=== PATIENT | female | born 1980 | race Caucasian/White ===

== ENCOUNTER 2018-08-01 13:15 | Inpatient (IN) | payer OTHER ==
[2018-08-01 15:07] VITALS: BMI 25.0
[2018-08-01 16:36] LABS: BASO % 0.5 % (0-2.0); EOS % 0.5 % (0-4.5); HEMATOCRIT 37.2 % (32.4-45.2); HEMOGLOBIN 12.9 GM/dL (10.7-15.3); LYMPH % 15.7 % (8-40); MCH 32.1 pg (25.7-33.7); MCHC 34.8 g/dl (32.0-36.0); MEAN CELL VOLUME 92.2 fl (80-96); MEAN PLT VOLUME 8.7 fl (7.5-11.1); MONO % 5.5 % (3.8-10.2); NEUT % 77.8 % (42.8-82.8); PLATELET COUNT 227 K/MM3 (134-434); RBC 4.03 M/mm3 (3.60-5.2); RDW 12.9 % (11.6-15.6); WHITE BLOOD COUNT 8.6 K/mm3 (4.0-10.0)
[2018-08-01 16:50] LABS: INR 0.87 (0.83-1.09); PROTHROMBIN TIME (PATIENT) 10.3 SEC (9.7-13.0)
[2018-08-01 16:53] LABS: ACTIVATED PTT 25.3 SECONDS (25.2-36.5)
[2018-08-01 16:57] LABS: ANION GAP 11 MMOL/L (8-16); BLOOD UREA NITROGEN 10 mg/dL (7-18); CALCIUM 7.8 mg/dL (8.5-10.1); CHLORIDE 105 mmol/L (98-107); CO2 20 mmol/L (21-32); CREATININE 0.6 mg/dL (0.55-1.3); GLUCOSE,RANDOM 68 mg/dL (74-106); POTASSIUM 3.9 mmol/L (3.5-5.1); SODIUM 137 mmol/L (136-145)
[2018-08-01] MEDS ORDERED: NALOXONE HCL 0.4 MG/ML VIAL IVPUSH PRN (17:58)
--- NOTE | 2018-08-01 18:10 | HP ---
Past Medical History - Primary Care Physician PCP:: Douglas Cooney - Admission Chief Complaint: 37yo P2 with at EGA 37w 6d admitted in spontaneous labor. 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 RUBBER: No: Alzheimer's, CVA, Dementia, Migraine, Multiple Sclerosis, Peripheral Neuropathy, Parkinson's, Seizure, Syncope, TIA, Vertigo, Other Cardiovascular: No: AFIB, Aneurysm, Aortic Insufficiency, Aortic Stenosis, CAD, CHF, Deep Vein Thrombosis, HTN, Hyperlipdemia, NV, Mitral Insufficiency, Mitral Stenosis, Murmur, Pulmonary Hypertension, Other Pulmonary: No: Asthma, Bronchitis, Cancer, COPD, O2 Dependent, Pneumonia, Previously Intubated, Pulmonary Embolus, Pulmonary Fibrosis, Sleep Apnea, Other Gastrointestinal: No: Ascites, Cancer, Constipation, Crohn's Disease, Diverticulitis, Diverticulosis, Esophageal Varices, Gastritis, GERD, GI Bleed, Hemorrhoids, Hiatal Hernia, Inflamatory Bowel Disease, Irritable Bowel Disease, Pancreatitis, Peptic Ulcer Disease, Ulcerative Colitis, Other Hepatobiliary: No: Cirrhosis, Cholelithiasis, Cholecystitis, Choledocholithiasis , Hepatitis A, Hepatitis B, Hepatitis C, Other Renal/: No: Renal Failure, Renal Inusuff, BPH, Cancer, Hematuria, Hemodialysis , Neurogenic Bladder, Renal Calculi, UTI, Other Reproductive: No: Ectopic , Endometriosis, Fibroids, PID, Polycystic Ovary Syndrome, Postmenopausal, Other ...: 5 ...Para: 2 ( x 2) ...Term: 1 ...: 1 ...Spon : 2 ...Induced : 0 ...Multiple Gestation: 0 ...LMP: 11/08/17 ... Weeks Gestation by Dates: 37.6 ...EDC by Dates: 08/15/18 ...EDC by Sono: 08/16/18 Heme/Onc: No: Anemia, B12 Deficiency, Bleeding Disorder, Cancer, Current Chemotherapy, Current Radiation Therapy, Hemochromatosis, Hypercoaguable State, Myeloproliferative Synd, Sickle Cell Disease, Sickle Cell Trait, Thrombocytopenia, Other Infectious Disease: No: AIDS, C-Diff, Herpes Zoster, HIV, MRSA, STD's, Tuberculosis, VREF, Other Psych: No: Addictions, Anxiety, Bipolar, Depression, Panic, Psychosis, Schizophrenia, Other Musculoskeletal: No: Bursitis, Chronic low back pain, Hemiparesis, Hemiplegia, Osteoarthritis, Paraplegia, Other Rheumatology: No: Fibromyalgia, Gout, Lupus, Rheumatoid Arthritis, Sarcoidosis, Vasculitis, Other ENT: No: Allergic Rhinitis, Sinusitis, Other Endocrine: No: Boom's Disease, [place]'s Disease, Diabetes Insipidus, Diabetes Mellitus, Hyperparathyroidism, Hyperthyroidism, Hypothyroidism, Osteopenia, SIADH, Other Dermatology: No: Basal Cell, Cellulitis, Eczema, Melanoma, Psoriasis, Squamous Cell, Other - Past Surgical History Past Surgical History: Yes: Appendectomy Hx Myomectomy: No Hx Transabdominal Cerclage: No - Smoking History Smoking history: Never smoked Have you smoked in the past 12 months: No - Alcohol/Substance Use Hx Alcohol Use: No History of Substance Use: reports: None - Social History Usual Living Arrangement: Yes: With Spouse, With Child ADL: Independent 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 History of Recent Travel: No Home Medications - Allergies Allergies/Adverse Reactions: Allergies Allergy/AdvReac Type Severity Reaction Status Date / Time No Known Allergies Allergy Verified 08/01/18 15:10 - Home Medications Home Medications: Ambulatory Orders Vitamins (Sjr) - 1 tab PO BID 12/22/14 Family Disease History - Family Disease History Other Family History: Aunt had DVT and PE at age 40 Review of Systems - Review of Systems Constitutional: reports: Other (Labor, ctx) Eyes: reports: No Symptoms HENT: reports: No Symptoms Neck: reports: No Symptoms Cardiovascular: reports: No Symptoms Respiratory: reports: No Symptoms Gastrointestinal: reports: No Symptoms Genitourinary: reports: No Symptoms Breasts: reports: No Symptoms Reported Musculoskeletal: reports: No Symptoms Integumentary: reports: No Symptoms Neurological: reports: No Symptoms Endocrine: reports: No Symptoms Hematology/Lymphatic: reports: No Symptoms Psychiatric: reports: No Symptoms Pain Intensity: 4 Physical Exam - Maternity Vital Signs: Vital Signs Temperature 98.6 F 08/01/18 13:15 Pulse Rate 58 L 08/01/18 17:00 Respiratory Rate 20 08/01/18 17:00 Blood Pressure 141/70 08/01/18 17:00 O2 Sat by Pulse Oximetry (%) Constitutional: Yes: Well Nourished, No Distress, Calm Eyes: Yes: WNL, Conjunctiva Clear HENT: Yes: WNL, Atraumatic, Normocephalic Neck: Yes: WNL, Supple, Trachea Midline Cardiovascular: Yes: WNL, Regular Rate and Rhythm Lungs: Clear to auscultation, Normal air movement Breast(s): Yes: WNL - Abdominal Exam/OB Fundal Height: 38 Number of Fetuses: Single Presentation: Vertex Contractions: Yes Regularity: Regular Intensity: Mild/Mod Monitor Mode: External Heart Rate (range): 135 Category: I Accelerations: Non-Uniform Decelerations: None - Vaginal Exam/OB Vaginal Bleediing: No Speculum Exam: No Dilatation (cm): 4 Effacement (%): 70 Amniotic Membrane Status: Ruptured (AROM) Amniotic Fluid: Yes: Clear Presentation: Vertex/Position Station: -3 - Physical Exam Musculoskeletal: Yes: WNL Extremities: Yes: WNL Edema: No Integumentary: Yes: WNL Deep Tendon Reflex Grade: Normal +2 ...Motor Strength: WNL Psychiatric: Yes: WNL, Alert, Oriented - Labs Lab Results: CBC, BMP 08/01/18 15:40 08/01/18 15:40 Hemorrhage Risk Assessment - Risk Factors Medium Risk Factors: Yes: None High Risk Factors: Yes: None Risk Score: 1 Risk Level: Medium Risk Imaging - Results Ultrasound: Report Reviewed Assessment/Plan 37yo P2 with at EGA 37w 6d admitted in spontaneous labor. Fetus with category I tracing. The labor is in early active phase. AROM was done. Plan to monitor progress. Pt requested epidural.
[2018-08-01] MEDS ORDERED: ELECTROLYTE-148 SOLN 1,000 ML IV SCH (18:15)
[2018-08-01] MEDS ORDERED: FENTANYL/BUPIVACAINE/NS/PF - PCEA - 50 ML DISP.SYRIN EP ONE (18:18)
[2018-08-01] MEDS: FENTANYL/BUPIVACAINE/NS/PF - PCEA - 50 ML DISP.SYRIN EP SCH (18:35)
[2018-08-01] MEDS ORDERED: OXYTOCIN 20 UNITS in 0.9% NS 20 UNIT/1,000 ML INFUS.BAG IV ONE ×2 (19:32→22:28)
[2018-08-01] MEDS ORDERED: METHYLERGONOVINE MALEATE 0.2 MG/1 ML AMP IM PRN (20:55)
[2018-08-01] MEDS ORDERED: BISACODYL 10 MG SUPP.RECT RC PRN (20:55)
[2018-08-01] MEDS ORDERED: ACETAMINOPHEN 325 MG TABLET (FP) PO PRN (20:55)
[2018-08-01] MEDS ORDERED: BENZOCAINE 20% 57 GM BOTTLE TP PRN (20:55)
[2018-08-01] MEDS ORDERED: WITCH HAZEL 50% (TUCKS) 40 PAD/JAR PAD TP PRN (20:55)
[2018-08-01] MEDS ORDERED: IBUPROFEN 600 MG TABLET (FP) PO PRN (20:55)
[2018-08-01] MEDS ORDERED: BENZOCAINE 28 GM HEMORRHOIDAL OINTMENT TP PRN (20:55)
[2018-08-01] MEDS ORDERED: OXYTOCIN 20 UNITS in 0.9% NS 20 UNIT/1,000 ML INFUS.BAG IV SCH (21:00)
--- NOTE | 2018-08-01 21:05 | PN ---
Delivery - Delivery Vaginal Delivery: No Problems, Spontaneous Type of Anesthesia: Epidural Episiotomy/Laceration: None EBL (cc): 300 Delivery, Single - Stages of Labor Date 1st Stage Initiatied: 08/01/18 Time 1st Stage Initiated: 11:30 Date 2nd Stage Initiated: 08/01/18 Time 2nd Stage Initiated: 19:45 Date of Delivery: 08/01/18 Time of Delivery: 20:10 Date Placenta Delivered: 08/01/18 Time Placenta Delivered: 20:13 - Condition of Literacy Education Professor/Account Services Manager Present: No Infant Gender: Female Position: Right, OA Total Hours ROM (Hrs/Mins): 3Hrs/18Mins - 1 Minute Total Score: 9 5 Minutes Total Score: 9 - Feeding Plan Initial Plan: Exclusive throughout hospitalization Benefits of Exclusively reinforced: Yes Remarks - Remarks Remarks: w/o problems.
[2018-08-02 07:56] LABS: BASO % 0.4 % (0-2.0); EOS % 0.5 % (0-4.5); HEMATOCRIT 38.7 % (32.4-45.2); HEMOGLOBIN 13.1 GM/dL (10.7-15.3); MCH 31.3 pg (25.7-33.7); MCHC 33.8 g/dl (32.0-36.0); MEAN CELL VOLUME 92.6 fl (80-96); MEAN PLT VOLUME 8.3 fl (7.5-11.1); MONO % 6.5 % (3.8-10.2); NEUT % 80.6 % (42.8-82.8); PLATELET COUNT 181 K/MM3 (134-434); RBC 4.18 M/mm3 (3.60-5.2); RDW 12.9 % (11.6-15.6); WHITE BLOOD COUNT 9.3 K/mm3 (4.0-10.0)
--- NOTE | 2018-08-02 08:46 | PN ---
Post Progress Note Type of Delivery: Vital Signs: Vital Signs Temperature 97.9 F 08/02/18 04:03 Pulse Rate 57 L 08/02/18 04:03 Respiratory Rate 20 08/02/18 04:03 Blood Pressure 128/81 08/02/18 04:03 O2 Sat by Pulse Oximetry (%) 100 08/01/18 21:45 - Labs Labs: CBC WBC 8.6 K/mm3 (4.0-10.0) 08/01/18 15:40 RBC 4.03 M/mm3 (3.60-5.2) 08/01/18 15:40 Hgb 12.9 GM/dL (10.7-15.3) 08/01/18 15:40 Hct 37.2 % (32.4-45.2) D 08/01/18 15:40 MCV 92.2 fl (80-96) 08/01/18 15:40 MCH 32.1 pg (25.7-33.7) 08/01/18 15:40 MCHC 34.8 g/dl (32.0-36.0) 08/01/18 15:40 RDW 12.9 % (11.6-15.6) 08/01/18 15:40 Plt Count 227 K/MM3 (134-434) 08/01/18 15:40 MPV 8.7 fl (7.5-11.1) 08/01/18 15:40 Absolute Neuts (auto) 6.7 K/mm3 (1.5-8.0) 08/01/18 15:40 Neutrophils % 77.8 % (42.8-82.8) 08/01/18 15:40 Lymphocytes % 15.7 % (8-40) D 08/01/18 15:40 Monocytes % 5.5 % (3.8-10.2) 08/01/18 15:40 Eosinophils % 0.5 % (0-4.5) 08/01/18 15:40 Basophils % 0.5 % (0-2.0) 08/01/18 15:40 Nucleated RBC % 0 % (0-0) 08/01/18 15:40
[2018-08-02] MEDS ORDERED: DIPHTH,PERTUSS(ACELL),TET 0.5 ML DISP.SYRIN IM ONE ×2 (10:00→12:30)
[2018-08-02] MEDS: PRENATAL VITAMINS W/ FOLIC ACID TABLET (FP) PO SCH (10:52)
[2018-08-02] MEDS: FENTANYL/BUPIVACAINE/NS/PF - PCEA - 50 ML DISP.SYRIN EP SCH (19:32)
[2018-08-02] MEDS ORDERED: SENNOSIDES/DOCUSATE COMBO (SENNA PLUS) TABLET (UD) PO PRN (22:00)
--- NOTE | 2018-08-03 08:18 | PN ---
Post Progress Note - Subjective Subjective: No complaints at this time but feels like getting a cold w/sore throat Post Day: 2 Type of Delivery: Vital Signs: Vital Signs Temperature 98.8 F 08/02/18 22:00 Pulse Rate 64 08/02/18 22:00 Respiratory Rate 20 08/02/18 22:00 Blood Pressure 137/74 08/02/18 22:00 O2 Sat by Pulse Oximetry (%) 100 08/01/18 21:45 Breast Exam: Yes: Soft Uterus: Yes: Fundus Firm, Fundus below umbilicus, Non-tender Abdomen/GI: Yes: Abdomen soft, Passing flatus, Tolerating PO Lochia: Yes: Rubra Lochia, amount: Small Extremities: Yes: Calves non-tender Perineum: Yes: Intact - Labs Labs: CBC WBC 9.3 K/mm3 (4.0-10.0) 08/02/18 06:30 RBC 4.18 M/mm3 (3.60-5.2) 08/02/18 06:30 Hgb 13.1 GM/dL (10.7-15.3) 08/02/18 06:30 Hct 38.7 % (32.4-45.2) 08/02/18 06:30 MCV 92.6 fl (80-96) 08/02/18 06:30 MCH 31.3 pg (25.7-33.7) 08/02/18 06:30 MCHC 33.8 g/dl (32.0-36.0) 08/02/18 06:30 RDW 12.9 % (11.6-15.6) 08/02/18 06:30 Plt Count 181 K/MM3 (134-434) D 08/02/18 06:30 MPV 8.3 fl (7.5-11.1) 08/02/18 06:30 Absolute Neuts (auto) 7.5 K/mm3 (1.5-8.0) 08/02/18 06:30 Neutrophils % 80.6 % (42.8-82.8) 08/02/18 06:30 Lymphocytes % 12.0 % (8-40) D 08/02/18 06:30 Monocytes % 6.5 % (3.8-10.2) 08/02/18 06:30 Eosinophils % 0.5 % (0-4.5) 08/02/18 06:30 Basophils % 0.4 % (0-2.0) 08/02/18 06:30 Nucleated RBC % 0 % (0-0) 08/02/18 06:30 Assessment/Plan 37yo P3 s/p , doing well stable, afebrile. care instructions reviewed. Continue routine care. Ambulation encouraged Discharge instruction reviewed.
--- NOTE | 2018-08-03 08:24 | DS ---
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 Vital Signs: Vital Signs Temperature 98.8 F 08/02/18 22:00 Pulse Rate 64 08/02/18 22:00 Respiratory Rate 20 08/02/18 22:00 Blood Pressure 137/74 08/02/18 22:00 O2 Sat by Pulse Oximetry (%) 100 08/01/18 21:45 Constitutional: Yes: Well Nourished, No Distress, Calm Eyes: Yes: WNL, Conjunctiva Clear HENT: Yes: WNL, Atraumatic, Normocephalic Neck: Yes: WNL, Supple, Trachea Midline Cardiovascular: Yes: WNL, Regular Rate and Rhythm Respiratory: Yes: WNL, Regular, CTA Bilaterally Gastrointestinal: Yes: WNL, Normal Bowel Sounds, Soft ...Rectal Exam: Yes: Deferred Renal/: Yes: WNL ....Post : Yes: Uterus firm, Uterus non-tender, Slight lochia rubra Musculoskeletal: Yes: WNL Extremities: Yes: WNL Edema: No Integumentary: Yes: WNL Neurological: Yes: WNL, Alert, Oriented ...Motor Strength: WNL Psychiatric: Yes: WNL, Alert, Oriented Labs: CBC, BMP 08/02/18 06:30 08/01/18 15:40 Delivery - Delivery Vaginal Delivery: No Problems, Spontaneous Type of Anesthesia: Epidural Episiotomy/Laceration: None EBL (cc): 300 Delivery, Single - Stages of Labor Date 1st Stage Initiatied: 08/01/18 Time 1st Stage Initiated: 11:30 Date 2nd Stage Initiated: 08/01/18 Time 2nd Stage Initiated: 19:45 Date of Delivery: 08/01/18 Time of Delivery: 20:10 Date Placenta Delivered: 08/01/18 Time Placenta Delivered: 20:13 Placenta: Yes: Spontaneous - Condition of Infant Psychiatric Social Worker/Shroudman Present: No Infant Gender: Female Weight: 2.778 kg Position: Right, OA Total Hours ROM (Hrs/Mins): 3Hrs/18Mins - 1 Minute Total Score: 9 5 Minutes Total Score: 9 - [place] Feeding Plan Initial Plan: Exclusive throughout hospitalization Benefits of Exclusively reinforced: Yes Discharge Summary Reason For Visit: LABOR ADMISSION Labor at 37w6d Procedures: Principal: Hospital Course: Normal recovery Condition: Good - Instructions Diet, Activity, Other Instructions: Physical activity Resume your normal everyday activity as tolerated no heavy lifting or exercise until seen by your surgeon. You may walk unlimited issa of and climb stairs. You may resume driving the car when you feel safe and comfortable behind the wheel. No sexual activity as instructed. Wound care If you have a bandage, leave it on, and keep dry for 48-72 hours. After that time discard the outer bandage. If they are tapes on the skin under the out of bandage leave them in place. They will peel off in the next 7 to 10 days. Do Not Peel them off. You may shower the day after surgery. If there are tapes present on the skin, you may shower over them. Diet There are no dietary restrictions. Eat healthy, high-fiber foods. Drink 6 to 8 glasses of liquid each day. This will assist in keeping your bowels are regular. Pain management You may take Tylenol or acetaminophen or Ibuprofen (for example, Motrin, Advil etc.) from my pain prescription medication is ordered should be taken as prescribed for moderate to severe pain. Call MD for any of the following: Severe pain not relieved by medication Fever of 101 or higher Excessive bleeding or drainage on dressing Inability to urinate Referrals: Douglas Cooney MD [Staff Physician] - Disposition: HOME - Home Medications Comprehensive Discharge Medication List: Ambulatory Orders Vitamins (Sjr) - 1 tab PO BID 12/22/14
[2018-08-03 08:54] VITALS: BP 117/76; PULSE 67; TEMP 97.9
[2018-08-03] MEDS: PRENATAL VITAMINS W/ FOLIC ACID TABLET (FP) PO SCH (10:00)
== END 2018-08-03 14:45 | disposition home or self-care (01) | DRG 807 ==
LOC: JLDR 13:15 → J3W 22:49
PROVIDERS: ADMIT Obstetrics & Gynecology; ATTEND Obstetrics & Gynecology
PROC: 10E0XZZ Delivery of Products of Conception, External Approach (ICD-10-PCS; principal; 2018-08-01)
DX: O80 Encounter for full-term uncomplicated delivery (principal); Z37.0 Single live birth; Z3A.37 37 weeks gestation of pregnancy
CPT/HCPCS: 36415; 59409; 80048; 85025; 85610; 85730; 86593; 86850; 86900; 86901; 87070; 87430; 90715